=== PATIENT | male | born 1980 | race Caucasian/White ===

== ENCOUNTER 2025-07-18 07:51 | Outpatient (CLI) | payer OTHER, SELFPAY | END 2025-07-18 07:52 | disposition home or self-care (01) | LOC: NFLDREF 07-24 14:52 | PROVIDERS: PCP Family Medicine; Referring Provider Family Medicine; Visit Provider Family Medicine | DX: E78.5 Hyperlipidemia, unspecified (principal); I10 Essential (primary) hypertension; R74.01 Elevation of levels of liver transaminase levels | CPT/HCPCS: 80053; 80061; 84443 ==

== ENCOUNTER 2025-08-03 07:39 | Outpatient (CLI) | payer OTHER, SELFPAY | END 2025-08-03 07:40 | disposition home or self-care (01) | LOC: NFLDREF 08-08 08:59 | PROVIDERS: PCP Family Medicine; Referring Provider Family Medicine; Visit Provider Family Medicine | DX: I10 Essential (primary) hypertension (principal) | CPT/HCPCS: 80048 ==